=== PATIENT | female | born 1965 | race Two or more races ===

== ENCOUNTER 2024-07-04 07:23 | Day surgery (SDC) | payer MEDICAID ==
[2024-07-03 15:50] LABS: Basophils # (auto) 0 10 ^3/uL (0-0.2); Basophils % (auto) 0.2 % (0.0-2.0); Eosinophils # (auto) 0.1 10 ^3/uL (0-0.8); Eosinophils % (auto) 0.7 % (0.0-7.0); Hematocrit 42.2 % (36.0-46.0); Hemoglobin 13.8 g/dL (12.2-16.2); Lymphocytes % (auto) 22.7 % (10.0-50.0); Mean Corpuscular Hemoglobin 26.9 pg (28.0-32.0); Mean Corpuscular Hgb Conc. 32.8 g/dL (32.0-36.0); Monocytes # (auto) 0.3 10 ^3/uL (0-1.3); Monocytes % (auto) 3.8 % (0.0-12.0); Neutrophils # (auto) 6.5 10 ^3/uL (1.6-8.6); Neutrophils % (auto) 72.6 % (37.0-80.0); Nucleated Red Blood Cells % 0.1 %; Platelet Count (auto) 234 10^3/uL (140-450); Red Blood Cells 5.14 10^6/uL (4.0-5.20); Red Cell Distribution Width 14.3 % (11.8-14.3)
[2024-07-03 16:08] LABS: INR 0.92 (0.9-1.15); Partial Thromboplastin Time 25.4 SEC (24.5-34.5); Prothrombin Time 9.8 sec (9.3-11.8)
[2024-07-03 16:10] LABS: Alanine Aminotransferase 26 U/L (7-40); Albumin 4.4 g/dL (3.2-4.8); Alkaline Phosphatase 71 U/L (46-116); Anion Gap 6 (5-15); Aspartate Aminotransferase 18 U/L (13-40); BUN/Creatinine Ratio 24.2 (10.0-20.0); Blood Urea Nitrogen 15 mg/dL (9-23); Calcium 9.6 mg/dL (8.7-10.4); Carbon Dioxide 27 mmol/L (20-31); Potassium 3.7 mmol/L (3.5-5.1); Sodium 141 mmol/L (136-145)
[2024-07-03 16:11] LABS: Total Protein 6.7 g/dL (5.7-8.2)
[2024-07-03 16:20] LABS: Bilirubin, Total 0.3 mg/dL (0.2-1.0); Chloride 108 mmol/L (98-107); Glucose 118 mg/dL (74-106)
[~2024-07-04] VITALS: Ht 152.4 cm; Wt 81.6 kg
[~2024-07-04 07:23] MED LIST: ATOR10TA PO
[2024-07-04] MEDS ORDERED: SODIUM CHLORIDE LOCK 10 ML ONE (08:21)
[2024-07-04] MEDS: LIDOCAINE VISCOUS 2% 15ML UD ONE (08:40)
[2024-07-04] MEDS: MIDAZOLAM HCL 5 MG/ML-1ML VIAL ONE (08:44)
[2024-07-04] MEDS: fentaNYL CITRATE 100 MCG/2 ML VL ONE (08:44)
[2024-07-04] MEDS: diphenhdrAMINE HCL 50 MG/1 ML VL ONE (08:44)
[2024-07-04 08:57] VITALS: TEMP 98.2
[2024-07-04 09:20] VITALS: BP 135/71; PULSE 57; RESP 16; O2SAT 98
--- NOTE | 2024-07-04 09:34 | DVHOP2 ---
Operative Report DATE OF PROCEDURE: 07/04/24 INDICATIONS FOR THE PROCEDURE: Epigastric abdominal pain heartburn belching not responding to treatment PROCEDURE PERFORMED: 1. Esophagogastroduodenoscopy and polypectomy by biopsy Esophagogastroduodenoscopy and biopsy POSTOPERATIVE DIAGNOSIS: Three small gastric polyp removed by biopsy forceps Small hiatal hernia Mild esophagitis LA classification B Antral gastritis INFORMED CONSENT: The risks and benefits and alternatives were explained to the patient and informed consent was obtained. PROCEDURE IN DETAIL: The patient was kept NPO after midnight. In the endoscopy room, she was given IV fentanyl 75 mcg and Versed, 3 mg titrated slowly to get her sedated. Olympus gastroscope was passed through the oropharynx into the stomach and the duodenum, and the findings were as follows. Esophagus: 1 cm hiatal hernia with a erythematous streaks suggestive of esophagitis LA classification B in the distal esophagus No Esophageal ulcer No Esophageal stricture Stomach: Fundus: Normal Body and antrum The three gastric polyps seen in the body of about 4 to-5 mm sessile removed by biopsy forceps Showed erythematous streaks with erosions suggestive of gastritis in the antrum biopsies taken to ensure there was no H pylori or other pathology Pylorus normal Duodenum normal Biopsies taken to ensure there is no celiac disease or other pathology Endoscopic impression Small hiatal hernia Mild esophagitis in the distal esophagus Three gastric polyps small Mild gastritis in the antrum No ulcers no mass lesions no stricture seen Suggestions Await the biopsy results Await the history of the polyps Treat with Pepcid or PPIs Further workup and treatment depending upon the biopsy results Thank you Dr. Godfrey for asking me to take part in the care of this pleasant patient Dr. Feldman Copy of the dictation to VELIA Villareal Dr., MD Jul 04, 2024 09:34
== END 2024-07-04 09:45 | disposition home or self-care (01) ==
LOC: GI 07:23
PROVIDERS: ATTEND Internal Medicine Gastroenterology
DX: R12 Heartburn (principal); K29.50 Unspecified chronic gastritis without bleeding; K31.7 Polyp of stomach and duodenum; K20.90 Esophagitis, unspecified without bleeding; K44.9 Diaphragmatic hernia without obstruction or gangrene; G43.909 Migraine, unspecified, not intractable, without status migrainosus; Z79.01 Long term (current) use of anticoagulants; Z90.12 Acquired absence of left breast and nipple; Z85.3 Personal history of malignant neoplasm of breast; Z90.710 Acquired absence of both cervix and uterus
CPT/HCPCS: 36415; 43239; 80053; 85025; 85610; 85730; 88305; 88312; 88342; J1200; J2250; J3010; J7030; 99152